=== PATIENT | female | born 1985 | race Caucasian/White ===

== ENCOUNTER 2023-07-10 01:27 | Day surgery (SDC) | payer BC, SELFPAY ==
[2023-06-28 09:22] VITALS: BMI 35.6
[2023-07-10 08:47] VITALS: BP 139/91; PULSE 76; RESP 18; TEMP 36.2; O2SAT 99
[2023-07-10] MEDS: LACTATED RINGERS 1,000 ML 150 ML IV CONT (08:56)
--- NOTE | 2023-07-10 09:15 | WPDANESEPPF ---
Anes - Initial Pre Proc Eval Procedure: Operation Date: 07/10/23 10:00 Proposed Procedures p Colonoscopy - Frank Helm MD Date/Time: 07/10/23 09:15 Surgeon: Frank Helm MD Pre Op Diagnosis: family hx colon ca Patient Data Age: 38 Gender: F Height: 1.68 m Weight: 109.5 kg Last Vital Signs Temp 97.1 F L 07/10/23 08:47 Pulse 76 07/10/23 08:47 Resp 18 07/10/23 08:47 BP 139/91 H 07/10/23 08:47 Pulse Ox 99 07/10/23 08:47 O2 Del Method Room Air 07/10/23 08:47 Allergies Allergy/AdvReac Type Severity Reaction Status Date / Time No Known Allergies Allergy Unknown Verified 07/10/23 08:44 Home Medications Medication Instructions Recorded Confirmed Type betamethasone valerate 0.1 % 1 applic topical BID PRN rash #45 10/04/21 06/28/23 Rx topical cream grams cyclobenzaprine 10 mg tablet 10 mg PO QHS PRN muscle spasm #30 01/06/22 06/28/23 Rx tabs sertraline 50 mg tablet 75 mg PO DAILY #135 tabs 03/07/23 06/28/23 Rx Patient hx anesthesia problems: none Family hx anesthesia problems: none Results Review: All pre-operative results and documents have been reviewed as part of the pre-operative evaluation. [facility] Past Medical History Medical History Abnormal Pap smear of cervix 07/26/21 lgsil +hpv colpo 08/10/2021 ok per [facility] Anxiety and depression rx meds Encounter for IUD insertion 09/20/16 Mirena insertion 08/23/21 Mirena removal/reinsertion Encounter for IUD removal 08/23/21 Mirena removal/reinsertion HPV in female Kidney stones Vaginal delivery 06/28/13 Casi no complications Surgical History Surgical History History of 07/11/16 primary c/s--elective prior trauma [place] History of colposcopy with cervical biopsy 08/10/21 benign History of lithotripsy (10/12/12) Family History Family History Mother Patient's mother is in good health Father Malignant neoplasm of prostate Colon polyp Sibling Patient's sister is in good health Patient's brother is in good health Other Breast cancer maternal aunt Social History Social History Smoking status: Never smoker Second hand tobacco smoke exposure: No Alcohol intake: never Substance use: never Substance use type: does not use Lack of Transportation: No Lack of Food: Never True Current Housing: I Have Housing Concerned About Future Housing: No Difficulty Paying Gas/Electric Bills: No Difficulty Paying for Meds: No Currently Unemployed: No Education: High School Diploma/GED Difficulty w/ Childcare or Family Care: No Living arrangements: with family Additional living arrangements comments: Occupation/Education: occupation 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 Gender identity (if verbalized by the patient): Female Sexual Orientation (if Verbalized by the Patient): Straight or Heterosexual Spiritual care concerns: No Anes - Eval Final PreProcedure Day of Procedure 07/10/23 09:15 Patient weight: morbidly obese Heart: regular rate and rhythm Lungs: clear to auscultation Airway: Mallampati scale class II Neurological: alert and oriented Last oral intake: >/= 8 hours ASA classification: III Emergent: no Anesthetic plan: proceed Anesthesia type and monitoring: general GIVS and standard monitoring Results Review: All pre-operative results and documents have been reviewed as part of the pre-operative evaluation. Informed Consent: The patient's anesthetic plan and its attendant risks and benefits were discussed with the patient/family/POA. Questions were solicited and answers provided to the satisfaction of the patient/family/POA.
--- NOTE | 2023-07-10 09:27 | PM.HPGS ---
History of Present Illness History of Present Illness Consent: Risks, benefits, and alternatives have been discussed and questions answered. Patient agrees to proceed with procedure. Chief complaint: family hx colon ca Narrative: Radha Wiley is a 38 year old female here for first colonoscopy, father had colon cancer Review of Systems Constitutional: Constitutional: Denies headache(s) and Denies weakness Eyes: Eyes: Denies blurry vision ENT: Reports Normal hearing present, Denies headache(s) and Denies neck pain Cardiovascular: Cardiovascular: Denies chest pain and Denies dyspnea Respiratory: Respiratory: Denies dyspnea Gastrointestinal: Gastrointestinal: Reports no additional gastrointestinal complaints Genitourinary: Genitourinary: Denies dysuria Musculoskeletal: Musculoskeletal: Denies neck pain Integumentary/Breasts: Skin/Breast: Denies dry skin Neurologic: Reports Normal hearing present, Denies headache(s) and Denies weakness Psychiatric: Psychiatric: Denies anxiety Endocrine: Endocrine: Denies change in body appearance Hematologic/Lymphatic: Hematologic/Lymphatic: Denies easy bleeding Allergic/Immunologic: Allergic/Immunologic: Denies urticaria PMF Past Medical History Medical History Abnormal Pap smear of cervix 07/26/21 lgsil +hpv colpo 08/10/[address] [facility] Anxiety and depression rx meds Encounter for IUD insertion 09/20/16 Mirena insertion 08/23/21 Mirena removal/reinsertion Encounter for IUD removal 08/23/21 Mirena removal/reinsertion HPV in female Kidney stones Vaginal delivery 06/28/13 Casi no complications Surgical History Surgical History History of 07/11/16 primary c/s--elective prior trauma [place] History of colposcopy with cervical biopsy 08/10/21 benign History of lithotripsy (10/12/12) Family History Family History Mother Patient's mother is in good health Father Malignant neoplasm of prostate Colon polyp Sibling Patient's sister is in good health Patient's brother is in good health Other Breast cancer maternal aunt Social History Social History Smoking status: Never smoker Second hand tobacco smoke exposure: No Alcohol intake: never Substance use: never Substance use type: does not use Lack of Transportation: No Lack of Food: Never True Current Housing: I Have Housing Concerned About Future Housing: No Difficulty Paying Gas/Electric Bills: No Difficulty Paying for Meds: No Currently Unemployed: No Education: High School Diploma/GED Difficulty w/ Childcare or Family Care: No Living arrangements: with family Additional living arrangements comments: Occupation/Education: occupation 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 Gender identity (if verbalized by the patient): Female Sexual Orientation (if Verbalized by the Patient): Straight or Heterosexual Spiritual care concerns: No Meds Home Medications and Allergies Home Medications Medication Instructions Recorded Confirmed Type betamethasone valerate 0.1 % 1 applic topical BID PRN rash #45 10/04/21 06/28/23 Rx topical cream grams cyclobenzaprine 10 mg tablet 10 mg PO QHS PRN muscle spasm #30 01/06/22 06/28/23 Rx tabs sertraline 50 mg tablet 75 mg PO DAILY #135 tabs 03/07/23 06/28/23 Rx Allergies Allergy/AdvReac Type Severity Reaction Status Date / Time No Known Allergies Allergy Unknown Verified 07/10/23 08:44 Vital Signs Vital Signs - 24 hr 07/10/23 08:47 Temperature 97.1 F L Pulse Rate 76 Respiratory Rate 18 Blood Pressure 139/91 H Pulse Oximetry 99 Oxygen Delivery Room Air Exam Const: General: comfortable and no acute distress
[2023-07-10 09:51] VITALS: BP 92/59; PULSE 74; RESP 20; O2SAT 95
[2023-07-10 10:01] VITALS: BP 105/69; PULSE 65; RESP 22; O2SAT 96
[2023-07-10 10:11] VITALS: BP 106/65; PULSE 56; RESP 16; O2SAT 99
== END 2023-07-10 10:20 | disposition home or self-care (01) ==
PROVIDERS: PCP Internal Medicine; Visit Provider Internal Medicine Gastroenterology
PROC: 0DJD8ZZ Inspection of Lower Intestinal Tract, Via Natural or Artificial Opening Endoscopic (ICD-10-PCS; CPT 45378; principal; 2023-07-10 10:00)
DX: Z12.11 Encounter for screening for malignant neoplasm of colon (principal); K64.8 Other hemorrhoids; F41.8 Other specified anxiety disorders; Z80.0 Family history of malignant neoplasm of digestive organs; E66.01 Morbid (severe) obesity due to excess calories; Z68.39 Body mass index [BMI] 39.0-39.9, adult
CPT/HCPCS: 45378; J2704; J7120

== ENCOUNTER 2023-10-31 13:27 | Emergency (ER) | payer BC, SELFPAY ==
--- NOTE | ~2023-10-31 | CT_ITS ---
EXAMINATION: CT BRAIN W/O DATE: 10/31/2023 14:10 INDICATION: Headache. TECHNIQUE: Computed tomography (CT) of the head was performed without intravenous contrast. The dose- length product was 605.33 mGy-cm. Automated exposure control and iterative reconstruction technique w ere employed. COMPARISON: No prior studies for comparison. FINDINGS: Normal brain parenchymal volume for age. Normal adler-white differentiation. No acute intrac ranial hemorrhage, infarction, mass or mass effect. No ventriculomegaly or midline shift. Midline sagittal images demonstrate a normal corpus callosum, c raniovertebral junction and sella turcica. Basilar cisterns are patent. Paranasal sinuses and mastoids are pneumatized. No depressed skull fractures. IMPRESSION: 1. No acute intracranial abnormality. Reviewed, dictated and finalized at location L. 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
[2023-10-31 13:28] VITALS: BP 137/93; PULSE 63; RESP 16; TEMP 36.4; O2SAT 99
--- NOTE | 2023-10-31 14:09 | ED.HA ---
HPI - Headache General Chief Complaint: Headache <COREEN Donovan Last Filed: 10/31/23 14:19> Stated Complaint: headache <COREEN Donovan Last Filed: 10/31/23 14:19> Time Seen by Provider: 10/31/23 15:51 <COREEN Donovan Last Filed: 10/31/23 14:19> Source: patient <COREEN Donovan Last Filed: 10/31/23 14:19> Mode of arrival: ambulatory <COREEN Donovan Last Filed: 10/31/23 14:19> Limitations: no limitations <COREEN Donovan Last Filed: 10/31/23 14:19> History of Present Illness HPI Narrative: Patient is a 38 y/o female who presents to the ED with c/o SU. Patient reports the headache first began 4 days, starts in posterior neck and radiates to frontal region. Hx of migraines, but states it has never been this severe and typically resolves with excedrin. Pain is intermittent, but became worse today after lunch. Reports photophobia/phonophobia, N/V, dizziness. She also reports recent URI sx's, including cough, congestion, rhinorrhea, sinus pressure. Family members have had similar sx's. Patient has taken Ibuprofen, sudafed, nasal spray today without relief. Denies numbness/tingling, focal weakness, vision changes, syncope, fevers. <COREEN Donovan Last Filed: 10/31/23 14:19> Related Data Allergies/Adverse Reactions: Allergies Allergy/AdvReac Type Severity Reaction Status Date / Time No Known Allergies Allergy Unknown Verified 10/31/23 15:58 <COREEN Donovan Last Filed: 10/31/23 14:19> Review of Systems Review of Systems: CONSTITUTIONAL: Denies fever, chills, or sweats. ENT: See HPI. CARDIOVASCULAR: Denies chest pain, palpitations, or edema. RESPIRATORY: Reports cough. GASTROINTESTINAL: See HPI. MUSCULOSKELETAL: See HPI. NEUROLOGIC: See HPI. <Shahida Taveras PA-C - Last Filed: 10/31/23 14:19> All systems reviewed & are unremarkable except as noted in HPI and below <Shahida Taveras PA-C - Last Filed: 10/31/23 14:19> [facility] Past Medical History Medical History: Medical History Abnormal Pap smear of cervix 07/26/21 lgsil +hpv colpo 08/10/2021 ok per [facility] Anxiety and depression rx meds Encounter for IUD insertion 09/20/16 Mirena insertion 08/23/21 Mirena removal/reinsertion Encounter for IUD removal 08/23/21 Mirena removal/reinsertion HPV in female Kidney stones Vaginal delivery 06/28/13 Casi no complications <Shahida Taveras PA-C - Last Filed: 10/31/23 14:19> Surgical History Surgical History: Surgical History H/O colonoscopy History of 07/11/16 primary c/s--elective prior trauma [place] History of colposcopy with cervical biopsy 08/10/21 benign 10/12/23 low grade lesions, KATIE 1 on cervical biopsy. History of lithotripsy (10/12/12) <Shahida Taveras PA-C - Last Filed: 10/31/23 14:19> Family History Family History: Family History Mother Patient's mother is in good health Father Malignant neoplasm of prostate Colon polyp Sibling Patient's sister is in good health Patient's brother is in good health Other Breast cancer maternal aunt <Shahida Taveras PA-C - Last Filed: 10/31/23 14:19> Social History Social History: Social History Smoking status: Never smoker Second hand tobacco smoke exposure: No Alcohol intake: never Substance use: never Substance use type: does not use Lack of Transportation: No Lack of Food: Never True Current Housing: I Have Housing Concerned About Future Housing: No Difficulty Paying Gas/Electric Bills: No Difficulty Paying for Meds: No Currently Unemployed: No Education: [employer]
[2023-10-31 14:11] VITALS: BP 147/90; PULSE 88; RESP 19; O2SAT 100
[2023-10-31] MEDS: ACETAMINOPHEN 500 MG TABLET 1000 MG PO (14:30)
[2023-10-31] MEDS: diphenhydrAMINE HCl INJ 50 MG/ML VIAL 25 MG IV PUSH (14:39)
[2023-10-31] MEDS: methylPREDNISolone SOD SUCC 125 MG VIAL IV PUSH (14:40)
[2023-10-31] MEDS: METOCLOPRAMIDE HCL INJ 10 MG/2 ML VIAL IV PUSH (14:40)
[2023-10-31 15:22] LABS: Influenza A QL RT-PCR Negative (Negative); Influenza B QL RT-PCR Negative (Negative); RSV RNA, RT-PCR Negative (Negative); SARS-CoV-2 RNA PCR Negative (Negative)
[2023-10-31] MEDS: KETOROLAC 15 MG/ML VIAL (*BKC) IV PUSH (16:28)
[2023-10-31] MEDS: SODIUM CHLORIDE 0.9% IV 1,000 ML 999 ML IV CONT (16:28)
[2023-10-31 18:03] VITALS: BP 138/72; PULSE 79; O2SAT 98
== END 2023-10-31 18:04 | disposition home or self-care (01) ==
PROVIDERS: Physician Assistant; Emergency Provider Emergency Medicine; PCP Internal Medicine
DX: B34.9 Viral infection, unspecified (principal); R51.9 Headache, unspecified; Z20.822 Contact with and (suspected) exposure to COVID-19; F41.9 Anxiety disorder, unspecified; F32.A Depression, unspecified; Z87.442 Personal history of urinary calculi
CPT/HCPCS: 70450; 87637; 96361; 96374; 96375; 99284; A9270; J1200; J1885; J2765; J2930; J7030

== ENCOUNTER 2024-05-21 09:52 | Outpatient (CLI) | payer BC, SELFPAY ==
[2024-05-21 10:16] LABS: Basophils Percent Auto 0.6 % (0.2-1.2); Eosinophils Absolute Auto 0.1 K/mm3 (0-0.3); Hematocrit 44.1 % (37.0-47.0); Hemoglobin 14.3 g/dL (12.0-15.0); Immature Granulocyte Absolute 0.03 K/mm3 (0.00-0.031); Immature Granulocyte Percent A 0.4 % (0-0.5); Lymphocytes Absolute Auto 2.18 K/mm3 (0.9-3.2); Lymphocytes Percent Auto 31.7 % (18.3-44.2); Mean Corpuscular HGB Conc 32.4 g/dl (32-36); Mean Corpuscular Hemoglobin 29.3 pg (26-34); Mean Corpuscular Volume 90.4 fl (80-100); Mean Platelet Volume 11.2 fl (7.4-10.4); Monocytes Absolute Auto 0.5 K/mm3 (0.1-0.6); Monocytes Percent Auto 7.3 % (2.6-8.5); Platelet Count Result 228 k/mm3 (150-375); Red Blood Count 4.88 M/mm3 (4.2-5.4); White Blood Count 6.9 K/mm3 (4.5-10.0)
[2024-05-21 10:31] LABS: Alanine Aminotransferase 16 U/L (6-35); Albumin Level 4.9 g/dL (3.5-5.1); Alkaline Phosphatase 64 U/L (38-126); Anion Gap 11 mmol/L (4-12); Aspartate Amino Transferase 20 U/L (14-36); Bilirubin,Total 0.5 mg/dL (0.2-1.3); Blood Urea Nitrogen 14 mg/dL (7-17); Calcium 9.3 mg/dL (8.4-10.2); Carbon Dioxide 22 mmol/L (22-30); Chloride 108 mmol/L (98-107); Cholesterol 202 mg/dL (0-200); Estimated Glomerular Filt Rate > 60; Glucose 98 mg/dL (65-110); HDL Direct 45 mg/dL; Potassium 3.9 mmol/L (3.4-5.0); Sodium 141 mmol/L (137-145); Triglycerides 176 mg/dL (<150)
[2024-05-21 10:38] LABS: Hemoglobin A1C 5.4 % (<5.7)
[2024-05-21 10:42] LABS: LDL Cholesterol Direct 118 mg/dL
== END 2024-05-21 09:53 | disposition home or self-care (01) ==
LOC: ANHLAB 09:55
PROVIDERS: PCP Nurse Practitioner; Visit Provider Nurse Practitioner
DX: Z00.00 Encounter for general adult medical examination without abnormal findings (principal); R73.9 Hyperglycemia, unspecified
CPT/HCPCS: 36415; 80053; 80061; 83036; 84443; 85025

== ENCOUNTER 2025-08-20 08:53 | Observation (INO) | payer BC, SELFPAY ==
[2025-08-20] VITALS (11 sets, daily range): BP systolic 93–162; BP diastolic 53–90; PULSE 39–62; RESP 17–19; TEMP 36.4–36.9; O2SAT 100; BMI 31.6
--- NOTE | 2025-08-20 | ECHO_ITS ---
Patient Info Name: Radha Wiley Age: 40 years : 1985 Gender: Female Ht: 66 in Wt: 190 lbs BSA: 2.03 m2 HR: 58 bpm BP: 122 / 86 mmHg Technical Quality: Good Exam Date: 08/20/2025 2:02 PM Patient Status: I Admit Date: 08/20/2025 Exam Type: CA echo doppler color flow Complete two-dimensional, color flow and Doppler transthoracic echocardiogram is performed. Staff Referring Physician: Xin Blair Pattern Storage Clerk: Joie Kahn Attending Provider: Rupert Curiel Summary 1. Complete two-dimensional, color flow and Doppler transthoracic echocardiogram is performed. 2. Left ventricular chamber dimension is normal. 3. Left ventricular systolic function is normal, estimated at 65-70. 4. The left ventricular diastolic function is normal. 5. E/e' 8 is minimally elevated. 6. Left atrial chamber dimension is mildly enlarged. 7. There is trace mitral valve regurgitation. 8. There is mild tricuspid valve regurgitation. 9. No pulmonary hypertension, estimated pulmonary arterial systolic pressure is 33 mmHg. 10. There is trace pulmonic regurgitation. Left Ventricle E/e' 8 is minimally elevated. Left ventricular chamber dimension is normal. Left ventricular systolic function is normal, estimated at 65-70. The left ventricular diastolic function is normal. Right Ventricle Right ventricular chamber dimension is normal. Right ventricular systolic function is normal and with normal TAPSE 2.4 cm. Left Atria Left atrial chamber dimension is mildly enlarged. Right Atria Right atrial chamber dimension is normal. Aortic Valve The aortic valve is trileaflet. There is no aortic valve stenosis. There is no aortic valve regurgitation. Pulmonic Valve There is trace pulmonic regurgitation. Mitral Valve There is no mitral valve stenosis. There is trace mitral valve regurgitation. Tricuspid Valve There is mild tricuspid valve regurgitation. No pulmonary hypertension, estimated pulmonary arterial systolic pressure is 33 mmHg. Pericardium/Pleural There is no pericardial effusion. Inferior Vena Cava Normal inferior vena cava with >50% collapse upon inspiration consistent with normal right atrial pressure, 5 mmHg. Aorta The aortic root size at the sinus of Valsalva is normal. Left Ventricular Outflow Tract Name Value Normal LVOT 2D LVOT Diameter 2.0 cm LVOT Doppler LVOT Peak Velocity 176 cm/s LVOT Peak Gradient 12 mmHg LVOT Mean Gradient 6 mmHg LVOT VTI 41 cm LVOT VTI/AV VTI Ratio 0.8 LVOT Stroke Volume 134 ml LVOT CO 12.2 l/min LVOT CI 6.0 l/min/m2 Pulmonic Valve Name Value Normal RVOT Doppler RVOT Peak Velocity 97 cm/s RVOT Peak Gradient 4 mmHg PV Doppler PV Peak Velocity 126 cm/s PV Peak Gradient 6 mmHg Mitral Valve Name Value Normal MV Diastolic Function MV E Peak Velocity 106 cm/s MV A Peak Velocity 87 cm/s MV E/A 1.2 MV Decel Time (PW) 211 ms MV Annular TDI MV E/e' (Septal) 12.0 MV E/e' (Lateral) 6.9 MV E/e' (Average) 9.5 Tricuspid Valve Name Value Normal TV Regurgitation Doppler TR Peak Velocity 264 cm/s TR Peak Gradient 28 mmHg Estimated PAP/RSVP RA Pressure 5 mmHg <=5 PA Systolic Pressure 33 mmHg <36 RV Systolic Pressure 33 mmHg <36 Aortic Valve Name Value Normal AV Doppler AV Peak Velocity 218 cm/s AV Peak Gradient 18 mmHg AV Mean Gradient 8 mmHg AV VTI 51 cm AV Area (Cont Eq VTI) 2.7 cm2 >=3.0 AV Area (Cont Eq Chi) 2.7 cm2 AV DI (Chi) 0.81 AV Regurgitation 2D LVOT Area 3.3 cm2 Ventricles Name Value Normal LV Dimensions 2D/MM IVS Diastolic Thickness (2D) 1.0 cm 0.6-1.0 LVID Diastole (2D) 4.6 cm 3.8-5.2 LVIW Diastolic Thickness (2D) 0.9 cm 0.6-0.9 LVID Systole (2D) 3.2 cm 2.2-3.5 LVOT Diameter 2.0 cm LV Mass (2D Cubed) 155.66 g 67.00-162.00 LV Mass Index (2D Cubed) 77 g/m2 43-95 Relative Wall Thickness (2D) 0.42 <=0.42 LV Fractional Shortening/Ejection Fraction 2D/MM LV Fractional Shortening (2D) 30 % 27-45 LV EF (2D Teichholz) 57 % LV Diastolic Volume (4C MOD) 114 ml LV EF (4C MOD) 74 % LV Diastolic Volume (2C MOD) 113 ml LV EF (2C MOD) 58 % LV Diastolic Volume (BP MOD) 118 ml 46-106 LV Diastolic Volume Index (BP MOD) 58 ml/m2 29-61 LV Systolic Volume (BP MOD) 33 ml 14-42 LV Systolic Volume Index (BP MOD) 16 ml/m2 8-24 LV EF (BP MOD) 72 % 54-74 LV Diastolic Length (4C) 8.0 cm LV Systolic Length (4C) 6.1 cm LV Stroke Volume (4C MOD) 84 ml Atria Name Value Normal LA Dimensions LA Volume (4C A-L) 66 ml LA Volume (BP A-L) 60 ml RA Dimensions RA Systolic Major Ragley Length (4C) 5.2 cm 2.2-2.8 RA Area (4C) 15.0 cm2 <=18.0 Report Signatures
--- NOTE | ~2025-08-20 | XR_ITS ---
EXAMINATION: XR chest 1V portable DATE: 08/20/2025 11:18 INDICATION: Vomiting TECHNIQUE: frontal view of the chest was obtained. COMPARISON: None FINDINGS: The lungs are clear with no focal airspace opacities, pulmonary edema, pleural effusion or pneumothorax. The cardiomediastinal silhouette is normal. Visualized bones and soft tissues are unremarkable. IMPRESSION: 1. No acute cardiopulmonary disease. Reviewed, dictated and finalized at location A.
--- NOTE | ~2025-08-20 | CT_ITS ---
EXAMINATION: CT abdomen pelvis w con DATE: 08/20/2025 10:05 INDICATION: Abdominal pain. TECHNIQUE: Computed tomography (CT) of the abdomen and pelvis was performed with 100 mL Omnipaque 350 intravenous contrast. Automated exposure control and iterative reconstruction technique were employed. The dose-length product was 553.88 mGy-cm. COMPARISON: CT abdomen and pelvis 10/12/2012 FINDINGS: The visualized portions of the lung bases are clear without pneumonia or pleural effusion. The heart size is normal. No pericardial effusion. There is a small sliding hiatal hernia. The liver, gallbladder, spleen, pancreas, adrenal glands, and left kidney are normal. There are cysts in right kidney measuring up to 2.8 cm. There are two 3 mm stones in right kidney. There is an umbilical hernia containing fat. There is an intrauterine device in expected position. There is diverticulosis of the colon without evidence of diverticulitis. There are no dilated loops of bowel. The appendix is normal. There are no pathologically enlarged lymph nodes. There is no free intraperitoneal fluid. There is mild thoracic and lumbar spondylosis. IMPRESSION: 1. Small sliding hiatal hernia. 2. Umbilical hernia containing fat. Reviewed, dictated and finalized at location E.
--- NOTE | 2025-08-20 09:07 | ECG_ITS ---
Test Date: 2025-08-20 09:12:54 Measurements Intervals [place] Rate: 42 P: 19 NH: 143 QRS: 67 QRSD: 98 T: 50 QT: 490 QTc: 413 Interpretive Statements SINUS BRADYCARDIA WITH SINUS ARRHYTHMIA ABNORMAL ECG No previous ECG available for comparison Electronically Signed On 08-21-2025 12:35:05 CDT by Vasiliy Fang M.D.
--- OUTSIDE RECORDS SUMMARY | 2025-08-20 09:24 | XMS_ITS | Clinical Summary ---
Author Organization [facility] Address [address] [place] [address] Care Team Providers Care Creative Writer Name Role Phone Unknown, Notinfile Primary Care Provider Unavail able Allergies No known active allergies Medications No known medications Medical History Medical History Date Comments Anxiety Social History Tobacco Use Types Packs/Day Years Used Date Smoking Tobacco: Never Assessed Personal Safety Answer Date Recorded Have you ever been in or are you currently in a harmful physical or emotional relationship or is someone making you feel afraid or unsafe? 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 Gender Identity Not on file Sexual Orientation Not on file Obstetrics History Last Filed Vital Signs Vital Sign Reading Time Taken Comments Blood Pressure 145/86 11/02/2023 12:00 PM NURSING PROJECT COORDINATOR Pulse 67 11/02/2023 12:00 PM NURSING PROJECT COORDINATOR Temperature 36.5 C (97.7 F) 11/02/2023 7:56 AM NURSING PROJECT COORDINATOR Respiratory Rate 18 11/02/2023 7:56 AM NURSING PROJECT COORDINATOR Oxygen Saturation 99% 11/02/2023 12:00 PM NURSING PROJECT COORDINATOR Inhaled Oxygen Concentration - - Weight 108.9 kg (240 lb) 11/02/2023 7:56 AM NURSING PROJECT COORDINATOR Height 167.6 cm (5' 6) 11/02/2023 7:56 AM NURSING PROJECT COORDINATOR Body Mass Index 38.74 11/02/2023 7:56 AM NURSING PROJECT COORDINATOR Plan of Treatment Health Maintenance Due Date Last Done Comments Breast Cancer Screening-Mammogram 1985 Cervical Cancer Screening 1985 Depression Screening 1985 Hepatitis C Screening 1985 Varicella Vaccines (1 of 2 - 13+ 2-dose series) 1998 Hepatitis B Screening 2003 Regular Well Visit/Exam 18-64 2003 HPV Vaccines (1 - 3-dose SCD M series) 2012 Influenza Vaccine (#1) 2025 DTaP/Tdap/Td Vaccine (2 - Td or Tdap) 07/12/2026 07/12/2016 Pneumococcal vaccine <65 Aged Out No longer eligible based on patient's age to complete this topic Insurance [employer] Care Teams Creative Writer Relationship Specialty Start Date End Date Unknown, Notinfile PCP - General 11/02/23
[2025-08-20 09:25] LABS: BEDSIDEPREGUCG Negative (Negative)
--- NOTE | 2025-08-20 09:26 | ED_ITS ---
HPI - General Adult General Chief complaint: Abdominal Pain Stated complaint: flu Time Seen by Provider: 08/20/25 08:57 History of Present Illness HPI narrative: Radha Westfall is a 40-year-old female with past medical history of ADHD who presents with reports having nausea vomiting this started 2 days ago. She stated that she could not keep anything down 2 days ago and was having upper abdominal pain. She states yesterday she thought she was feeling a little bit better she was able to eat some but then all the symptoms returned today with continued nausea vomiting and upper abdominal pain. She states that she also started to have diarrhea head today that was new. Related Data Allergies Allergy/AdvReac Type Severity Reaction Status Date / Time No Known Allergies Allergy Unknown Verified 08/20/25 14:54 Review of Systems 2 Review of Systems: All systems reviewed & are unremarkable except as noted in HPI and below PMFSH Past Medical History Medical History Anxiety and depression rx meds Vaginal delivery 06/28/13 Casi no complications Encounter for IUD removal 08/23/21 Mirena removal/reinsertion Encounter for IUD insertion 09/20/16 Mirena insertion 08/23/21 Mirena removal/reinsertion Kidney stones HPV in female Abnormal Pap smear of cervix 07/26/21 lgsil +hpv colpo 08/10/2021 ok per [facility] Surgical History Surgical History H/O colonoscopy History of colposcopy with cervical biopsy 08/10/21 benign 10/12/23 low grade lesions, KATIE 1 on cervical biopsy. History of 07/11/16 primary c/s--elective prior trauma [place] History of lithotripsy (10/12/12) Family History Family History Mother Patient's mother is in good health Father Malignant neoplasm of prostate Colon polyp Sibling Patient's sister is in good health Patient's brother is in good health Other Breast cancer maternal aunt Social History Social History Smoking status: Never smoker Second hand tobacco smoke exposure: No Alcohol intake: current Drinks per week: 1 Substance use: current Substance use type: marijuana Lack of Transportation: No Lack of Food: Never True Current Housing: I Have Housing Concerned About Future Housing: No Difficulty Paying Gas/Electric Bills: No Difficulty Paying for Meds: No Currently Unemployed: No Education: High School Diploma/GED Difficulty w/ Childcare or Family Care: No Living arrangements: with family Additional living arrangements comments: Occupation/Education: occupation 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 EYES: PERRLA and EOMI. ENT: Nares clear, no rhinorrhea or epistaxis. Mucous membranes moist. Oropharynx without tonsillar hypertrophy exudate or other lesions. NECK: Supple. No adenopathy or masses. No carotid bruits or JVD CHEST: Clear to auscultation. No respiratory distress. No wheezes rales or rhonchi HEART: Regular rate and rhythm. No murmur heard. Normal peripheral pulses. ABDOMEN: Soft, hypoactive BS, + pain to the upper and mid abdomen - she states it makes her feel she will vomit with palpation EXTREMITIES: Normal range of motion. No edema. SKIN: Warm, dry, no rash. NEURO: No focal deficits. Alert and oriented x3. PSYCH: Normal mood and affect. Course Vital Signs Vital signs: Vital Signs Temperature 36.4 C 08/20/25 08:57 Pulse Rate 47 L 08/20/25 08:57 Respiratory Rate 18 08/20/25 08:57 Blood Pressure 162/90 H 08/20/25 08:57 Pulse Oximetry 100 08/20/25 08:57 Oxygen Delivery Room Air 08/20/25 08:57 Temperature 36.8 C 08/20/25 14:40 Pulse Rate 62 08/20/25 16:30 Respiratory Rate 19 08/20/25 16:30 Blood Pressure 106/56 L 08/20/25 17:03 Pulse Oximetry 100 08/20/25 16:30 Oxygen Delivery Room Air 08/20/25 16:30 Medical Decision Making MDM Narrative Medical decision making narrative: 40-year-old with complaints of having upper abdominal pain nausea vomiting and diarrhea today's states 3 with symptoms. She has got maybe she had the flu and she called her doctor to let him know how she is feeling he told her that since she been dealing with this for over 48 hours that she needs to go to the emergency room. Concern for : SBO/ cholecystitis/ pancreatitis/ pyelonephritis/ Viral syndrome / dehydration Plan to check labs likely CT abd/pelv During the course of treating her nausea vomiting abdominal pain she is noted to have markedly bradycardia. She was mostly between 40 and 46 and dipping down to 39 and 38 during knee she did remain asymptomatic no shortness of breath, blood pressure remained stable, patient was maintaining well. She had continued upper abdominal pain and the nausea feeling. Her lab work showed white blood cell count at 10.1 hemodynamically stable CMP showed mild OSCAR with an elevated creatinine of 1.1 to GFR 54 her glucose was 144 potassium slightly low at 3.3. Lactate was normal 1.3 lipase 241 With her heart rate being newly is low we did EKG which showed sinus bradycardia with a troponin that was negative Her urinalysis showed urinary tract infection with cloudy positive protein 6, trace ketones, 2+ blood, positive leukocytes with white blood cells 21-[address] scan-1. Small sliding hiatal hernia. 2. Umbilical hernia containing fat. Chest XR- 1. No acute cardiopulmonary disease. With this CT scan and chest x-ray will be stable is evident that she has urinary tract infection I have treated the urinary tract infection continue to treat her nausea and her pain. She did finally get her pain under better control but still felt the nausea and continued to have bradycardia with feeling improvement. Cardiology recommended getting an echo her that other than the it is on her she is not symptomatic there is nothing else to do other end. I did reach out to the Hospitalists to admission for the echo and further treatment for her OSCAR and her urinary tract infection. Medical Records Medical records reviewed: Yes I reviewed the external patient's medical records. Vital Signs Vital Signs: Vital Signs Temperature 36.4 C 08/20/25 08:57 Pulse Rate 47 L 08/20/25 08:57 Respiratory Rate 18 08/20/25 08:57 Blood Pressure 162/90 H 08/20/25 08:57 Pulse Oximetry 100 08/20/25 08:57 Oxygen Delivery Room Air 08/20/25 08:57 Temperature 36.8 C 08/20/25 14:40 Pulse Rate 62 08/20/25 16:30 Respiratory Rate 19 08/20/25 16:30 Blood Pressure 106/56 L 08/20/25 17:03 Pulse Oximetry 100 08/20/25 16:30 Oxygen Delivery Room Air 08/20/25 16:30 Vitals reviewed by me Lab Data Lab results reviewed: Yes I reviewed the patient's lab results. 08/20/25 09:17 08/20/25 09:17 Labs: Lab Results 08/20/25 08/20/25 08/20/25 Range/Units 09:17 09:22 09:23 WBC 10.1 H (4.5-10.0) K/mm3 RBC 4.68 (4.2-5.4) M/mm3 Hgb 14.1 (12.0-15.0) g/dL Hct 43.7 (37.0-47.0) % MCV 93.4 (80-100) fl MCH 30.1 (26-34) pg MCHC 32.3 (32-36) g/dl RDW 13.2 (11.5-14.5) % Plt Count 216 (150-375) k/mm3 MPV 11.3 H (7.4-10.4) fl Immature Gran % (Auto) 0.4 (0-0.5) % Neut % (Auto) 82.5 H (45.5-73.1) % Lymph % (Auto) 10.7 L (18.3-44.2) % [place] % (Auto) 5.9 (2.6-8.5) % Eos % (Auto) 0.2 (0-4.4) % Baso % (Auto) 0.3 (0.2-1.2) % Lymph # (Auto) 1.08 (0.9-3.2) K/mm3 [place] # (Auto) 0.6 (0.1-0.6) K/mm3 Eos # (Auto) 0.0 (0-0.3) K/mm3 Baso # (Auto) 0.0 (0.0-0.1) K/mm3 Abs Immat Gran (auto) 0.04 H (0.00-0.031) K/mm3 Absolute Neuts (auto) 8.3 H (1.3-6.7) K/mm3 Absolute Nucleated RBC 0.000 (0.0-0.012) K/mm3 Nucleated RBC % 0.0 (0.0-0.2) % Sodium 138 (137-145) mmol/L Potassium 3.3 L (3.4-5.0) mmol/L Chloride 103 (98-107) mmol/L Carbon Dioxide 25 (22-30) mmol/L Anion Gap 10 (4-12) mmol/L BUN 17 (7-17) mg/dL Creatinine 1.12 H (0.7-1.0) mg/dL Estim Creat Clear Calc 66 ml/min Estimated GFR 54 L (59 - ) Glucose 144 H (65-110) mg/dL POC Capillary Glucose 143 H (65-105) mg/dl Hemoglobin A1c 5.4 (<5.7) % Lactic Acid 1.3 (0.7-2.0) mmol/L Calcium 9.0 (8.4-10.2) mg/dL Magnesium 1.9 (1.6-2.3) mg/dL Total Bilirubin 0.5 (0.2-1.3) mg/dL AST 29 (14-36) U/L ALT 20 (6-35) U/L Alkaline Phosphatase 71 (38-126) U/L Troponin I < 0.012 (0.000-0.034) ng/mL Total Protein 7.8 (6.3-8.2) g/dL Albumin 4.5 (3.5-5.1) g/dL Lipase 241 (23-300) U/L TSH 0.500 (0.465-4.680) uIU/mL Free T4 1.22 (0.78-2.19) ng/dL Free T3 pg/mL 3.47 (2.71-6.16) pg/mL Urine Color (Yellow) Urine Appearance (Clear) Urine pH (5.0-9.0) Ur Specific [place] (1.001-1.035) Urine Protein (Negative) mg/dL Urine Glucose (UA) (Negative) mg/dL Urine Ketones (Negative) mg/dL Ur Blood (Man) (Negative) Urine Nitrate (Negative) Urine Bilirubin (Negative) Urine Urobilinogen (<2.0) mg/dL Add Ur Microanalysis Leukocyte Esterase Rfl (Negative) WILLIAM/UL Urine RBC (0-2) /hpf Urine WBC (0-3) /hpf Ur Squamous Epith Cells (Few) /hpf Urine Bacteria /hpf Urine Casts Hyaline Casts (None) /lpf POC Urine HCG, Qual Negative (Negative) Influenza A (RT-PCR) (Negative) Influenza B (RT-PCR) (Negative) RSV (RT-PCR) (Negative) SARS-CoV-2 RNA (RT-PCR) (Negative) 08/20/25 08/20/25 Range/Units 09: 09:30 WBC (4.5-10.0) K/mm3 RBC (4.2-5.4) M/mm3 Hgb (12.0-15.0) g/dL Hct (37.0-47.0) % MCV (80-100) fl MCH (26-34) pg MCHC (32-36) g/dl RDW (11.5-14.5) % Plt Count (150-375) k/mm3 MPV (7.4-10.4) fl Immature Gran % (Auto) (0-0.5) % Neut % (Auto) (45.5-73.1) % Lymph % (Auto) (18.3-44.2) % [place] % (Auto) (2.6-8.5) % Eos % (Auto) (0-4.4) % Baso % (Auto) (0.2-1.2) % Lymph # (Auto) (0.9-3.2) K/mm3 [place] # (Auto) (0.1-0.6) K/mm3 Eos # (Auto) (0-0.3) K/mm3 Baso # (Auto) (0.0-0.1) K/mm3 Abs Immat Gran (auto) (0.00-0.031) K/mm3 Absolute Neuts (auto) (1.3-6.7) K/mm3 Absolute Nucleated RBC (0.0-0.012) K/mm3 Nucleated RBC % (0.0-0.2) % Sodium (137-145) mmol/L Potassium (3.4-5.0) mmol/L Chloride (98-107) mmol/L Carbon Dioxide (22-30) mmol/L Anion Gap (4-12) mmol/L BUN (7-17) mg/dL Creatinine (0.7-1.0) mg/dL Estim Creat Clear Calc ml/min Estimated GFR (59 - ) Glucose (65-110) mg/dL POC Capillary Glucose (65-105) mg/dl Hemoglobin A1c (<5.7) % Lactic Acid (0.7-2.0) mmol/L Calcium (8.4-10.2) mg/dL Magnesium (1.6-2.3) mg/dL Total Bilirubin (0.2-1.3) mg/dL AST (14-36) U/L ALT (6-35) U/L Alkaline Phosphatase (38-126) U/L Troponin I (0.000-0.034) ng/mL Total Protein (6.3-8.2) g/dL Albumin (3.5-5.1) g/dL Lipase (23-300) U/L TSH (0.465-4.680) uIU/mL Free T4 (0.78-2.19) ng/dL Free T3 pg/mL (2.71-6.16) pg/mL Urine Color Yellow (Yellow) Urine Appearance Cloudy H (Clear) Urine pH 5.5 (5.0-9.0) Ur Specific [place] 1.026 (1.001-1.035) Urine Protein 1+ H (Negative) mg/dL Urine Glucose (UA) Negative (Negative) mg/dL Urine Ketones Trace H (Negative) mg/dL Ur Blood (Man) 2+ H (Negative) Urine Nitrate Negative (Negative) Urine Bilirubin Negative (Negative) Urine Urobilinogen 0.2 (<2.0) mg/dL Add Ur Microanalysis Reviewed Leukocyte Esterase Rfl 1+ H (Negative) WILLIAM/UL Urine RBC 6-10 H (0-2) /hpf Urine WBC 21-50 H (0-3) /hpf Ur Squamous Epith Cells Many H (Few) /hpf Urine Bacteria 3+ H /hpf Urine Casts 6-10 Hyaline Casts Present (None) /lpf POC Urine HCG, Qual (Negative) Influenza A (RT-PCR) Negative (Negative) Influenza B (RT-PCR) Negative (Negative) RSV (RT-PCR) Negative (Negative) SARS-CoV-2 RNA (RT-PCR) Negative (Negative) Imaging Data My impression: Impressions Abdomen/Pelvis CT 08/20/25 10:09 IMPRESSION: 1. Small sliding hiatal hernia. 2. Umbilical hernia containing fat. Chest X-Ray 08/20/25 11:30 IMPRESSION: 1. No acute cardiopulmonary disease. ECG Data EKG #1: ECG completion date: 08/20/25 ECG completion time: 09:12 Prior ECG tracings: not available for review Interpretation: Rate 42 MI 143 QRSd 98 QT 490 QTc 413 --[place]-- P 19 QRS 67 T 50 SINUS BRADYCARDIA WITH SINUS ARRHYTHMIA Discharge Plan Discharge Clinical Impression: Bradycardia, OSCAR (acute kidney injury) UTI (urinary tract infection) Qualifiers: Urinary tract infection type: acute cystitis Hematuria presence: with hematuria Qualified Code(s): N30.01 - Acute cystitis with hematuria Nausea and vomiting Qualifiers: Vomiting type: unspecified Qualified Code(s): R11.2 - Nausea with vomiting, unspecified Abdominal pain Qualifiers: Abdominal location: upper abdomen, unspecified Qualified Code(s): R10.10 - Upper abdominal pain, unspecified Patient Disposition: Still a Patient Condition: Stable Time of Disposition: 18:45
[2025-08-20] MEDS: METOCLOPRAMIDE HCL INJ 10 MG/2 ML VIAL IV PUSH (09:27)
[2025-08-20] MEDS: KETOROLAC 30 MG/ML VIAL (*BKC) IV PUSH (09:27)
[2025-08-20] MEDS: FAMOTIDINE 20 MG/2 ML VIAL IV PUSH (09:27)
[2025-08-20] MEDS: SODIUM CHLORIDE 0.9% IV 1,000 ML 999 ML IV CONT ×2 (09:28→10:41)
[2025-08-20 09:31] LABS: Hematocrit 43.7 % (37.0-47.0); Hemoglobin 14.1 g/dL (12.0-15.0); Immature Granulocyte Percent A 0.4 % (0-0.5); Lymphocytes Absolute Auto 1.08 K/mm3 (0.9-3.2); Mean Corpuscular HGB Conc 32.3 g/dl (32-36); Mean Corpuscular Hemoglobin 30.1 pg (26-34); Mean Corpuscular Volume 93.4 fl (80-100); Nucleated Red Blood Cells Absolute Auto 0.000 K/mm3 (0.0-0.012); Nucleated Red Blood Cells Perc 0.0 % (0.0-0.2); Platelet Count Result 216 k/mm3 (150-375); Red Blood Count 4.68 M/mm3 (4.2-5.4); White Blood Count 10.1 K/mm3 (4.5-10.0)
[2025-08-20 09:45] LABS: Alanine Aminotransferase 20 U/L (6-35); Albumin Level 4.5 g/dL (3.5-5.1); Alkaline Phosphatase 71 U/L (38-126); Anion Gap 10 mmol/L (4-12); Aspartate Amino Transferase 29 U/L (14-36); Bilirubin,Total 0.5 mg/dL (0.2-1.3); Blood Urea Nitrogen 17 mg/dL (7-17); Calcium 9.0 mg/dL (8.4-10.2); Carbon Dioxide 25 mmol/L (22-30); Chloride 103 mmol/L (98-107); Estimated CRCL calculation 66 ml/min; Estimated Glomerular Filt Rate 54; Glucose 144 mg/dL (65-110); Lipase 241 U/L (23-300); Magnesium 1.9 mg/dL (1.6-2.3); Potassium 3.3 mmol/L (3.4-5.0); Sodium 138 mmol/L (137-145); Total Protein 7.8 g/dL (6.3-8.2)
[2025-08-20 09:51] LABS: Troponin I < 0.012 ng/mL (0.000-0.034)
--- OUTSIDE RECORDS SUMMARY | 2025-08-20 09:54 | XMS_ITS | Clinical Summary ---
Author Organization [facility] Address [address] [place] [address] Care Team Providers Care Credentialer Name Role Phone Unknown, Notinfile Primary Care [...] on file Legal Sex Female 7:53 AM QA SOFTWARE TESTER Gender Identity Not on file Sexual Orientation Not on file Obstetrics History Last Filed Vital Signs Vital Sign Reading Time Taken Comments Blood Pressure 145/86 11/02/2023 12:00 PM QA SOFTWARE TESTER Pulse 67 11/02/2023 12:00 PM QA SOFTWARE TESTER Temperature 36.5 C (97.7 F) 11/02/2023 7:56 AM QA SOFTWARE TESTER Respiratory Rate 18 11/02/2023 7:56 AM QA SOFTWARE TESTER Oxygen Saturation 99% 11/02/2023 12:00 PM QA SOFTWARE TESTER Inhaled Oxygen Concentration - - Weight 108.9 kg (240 lb) 11/02/2023 7:56 AM QA SOFTWARE TESTER Height 167.6 cm (5' 6) 11/02/2023 7:56 AM QA SOFTWARE TESTER Body Mass Index 38.74 11/02/2023 7:56 AM QA SOFTWARE TESTER Plan of Treatment Health Maintenance Due Date [...] patient's age to complete this topic Insurance [employer]ax [employer] Care Teams Credentialer Relationship Specialty Start Date End Date Unknown, Notinfile PCP - General 11/02/23
[2025-08-20 09:58] LABS: Add Urine Microscopic? YES; Appearance Urine Cloudy (Clear); Glucose Urine UA Negative (Negative); Leukocyte Esterase Ur 1+ LEU/UL (Negative); Need Manual Microscopic Reviewed; Nitrate Urine Negative (Negative); Specific Grav Ur 1.026 (1.001-1.035)
[2025-08-20 10:12] LABS: Influenza A QL RT-PCR Negative (Negative); Influenza B QL RT-PCR Negative (Negative); RSV RNA, RT-PCR Negative (Negative); SARS-CoV-2 RNA PCR Negative (Negative)
[2025-08-20] MEDS: cefTRIAXone 1 GM in SODIUM CHLORIDE 0.9% IV 50 ML 100 ML IVPB (10:41)
[2025-08-20] MEDS: DICYCLOMINE HCL INJ 20 MG/2 ML VIAL IM (10:42)
[2025-08-20] MEDS: HALOPERIDOL LACTATE 5 MG/ML VIAL IV PUSH (10:42)
[2025-08-20] MEDS: ONDANSETRON INJ 4 MG/2 ML VIAL IV PUSH (12:08)
--- NOTE | 2025-08-20 12:18 | PC.NURSE ---
called lab at this time and spoke to Stan, added TSH to blood previously sent down
[2025-08-20 12:59] LABS: Thyroid Stimulating Hormone 0.500 uIU/mL (0.465-4.680)
--- NOTE | 2025-08-20 13:05 | PM.IMHP ---
H&P: HPI History of Present Illness Date/Time: 08/20/25 13:05 Chief Complaint: Abdominal Pain, Nausea, Vomiting, Diarrhea Narrative: 40 y/o F with PMH of anxiety, depression, ADHD, and kidney stones presents here with nausea, vomiting, diarrhea, and abdominal pain. The patient presents here from home on on 08/20 for further evaluation of nausea, vomiting had diarrhea, and abdominal pain. She reports onset of nausea and vomiting on Monday, 08/18. Due to the N/V she has been unable to tolerate very little PO intake for the past 2 days. Has been utilizing Zofran at home, did have some improvement yesterday but symptoms returned today. She is reporting associated upper abdominal pain that she describes as achy, epigastric, and similar pain to when she previously had a viral infection/influenza. Patient then developed diarrhea today x3, described this as dark green and loose. While in the emergency department, the patient was noted to be newly bradycardic in the upper 30s to mid 40s. She has no previous history of bradycardia. She denies associated chest pain, shortness a breath, palpitations, lightheadedness, or dizziness. Initial VS at presentation: 97.6? F, HR 47, R 18, 162/90, and 100% on RA. ED workup showed: WBC 10.1, no anemia, potassium 3.3, creatinine 1.12 and GFR 54 (1.0 and normal GFR in 2023), glucose 144, lactic 1.3, initial troponin negative, TSH 0.5 and within normal limits. UA suggestive of UTI, however may be contaminated as there are many epithelial cells. Viral PCR negative. CT of the abdomen/pelvis showed a small sliding hiatal hernia, umbilical hernia containing fat. CXR showed no acute cardiopulmonary disease. Review of Systems Review of Systems: All systems reviewed & are unremarkable except as noted in HPI and below [facility] Past Medical History Medical History Anxiety and depression rx meds Vaginal delivery 06/28/13 Casi no complications Encounter for IUD removal 08/23/21 Mirena removal/reinsertion Encounter for IUD insertion 09/20/16 Mirena insertion 08/23/21 Mirena removal/reinsertion Kidney stones HPV in female Abnormal Pap smear of cervix 07/26/21 lgsil +hpv colpo 08/10/[address] [facility] Surgical History Surgical History H/O colonoscopy History of colposcopy with cervical biopsy 08/10/21 benign 10/12/23 low grade lesions, KATIE 1 on cervical biopsy. History of 07/11/16 primary c/s--elective prior trauma [place] History of lithotripsy (10/12/12) Family History Family History Mother Patient's mother is in good health Father Malignant neoplasm of prostate Colon polyp Sibling Patient's sister is in good health Patient's brother is in good health Other Breast cancer maternal aunt Social History Social History Smoking status: Never smoker Second hand tobacco smoke exposure: No Alcohol intake: current Drinks per week: 1 Substance use: current Substance use type: marijuana Lack of Transportation: No Lack of Food: Never True Current Housing: I Have Housing Concerned About Future Housing: No Difficulty Paying Gas/Electric Bills: No Difficulty Paying for Meds: No Currently Unemployed: No Education: High School Diploma/GED Difficulty w/ Childcare or Family Care: No Living arrangements: with family Additional living arrangements comments: Occupation/Education: occupation 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 Gender identity (if verbalized by the patient): Female Sexual Orientation (if Verbalized by the Patient): Straight or Heterosexual Spiritual care concerns: No Meds Home Medications and Allergies Home Medications ?Medication ?Instructions ?Recorded ?Confirmed ?Type betamethasone valerate 0.1 % 1 applic topical BID PRN rash #45 10/04/21 08/20/25 Rx topical cream grams cyclobenzaprine 10 mg tablet 10 mg PO QHS PRN muscle spasm #30 04/25/24 08/20/25 Rx tabs sertraline 50 mg tablet 75 mg (1.5 x 50 mg) PO DAILY #135 01/24/25 08/20/25 Rx tabs methylphenidate HCl 36 mg 36 mg PO QAM #30 tabs 07/04/25 08/20/25 Rx tablet,extended release 24 hr (Concerta) ondansetron 4 mg disintegrating 4 mg PO Q6H PRN nausea and 08/19/25 08/20/25 Rx tablet vomiting #30 tabs Allergies Allergy/AdvReac Type Severity Reaction Status Date / Time No Known Allergies Allergy Unknown Verified 08/20/25 14:54 Vital Signs Vital Signs - 24 hr 08/20/25 08:57 08/20/25 10:10 08/20/25 12:08 Temperature 97.6 F Pulse Rate 47 L 40 L 39 L Respiratory Rate 18 17 18 Blood Pressure 162/90 H 145/72 H 122/86 Pulse Oximetry 100 100 100 Oxygen Delivery Room Air Exam Const: General: comfortable and no acute distress Other: , female, nontoxic appearance HENMT: Face/Nose/Sinus: Normal nares present Mouth: Yes moist mucous membranes Eyes: General: appearance normal, both eyes and all related structures Sclera: sclerae normal Pupils: Equal, round and reactive pupils present EOM: EOMs intact bilaterally Resp: Effort & Inspection: normal respiratory effort Auscultation: clear to auscultation bilaterally Cardio: Rate: bradycardic Rhythm: regular rhythm Other: S1-S2 present without murmur, rub, ectopy GI: Other: Abdomen soft, nondistended, nontender. Normoactive bowel sounds in all quadrants. Skin: General skin exam: normal color and no rashes or lesions noted Wounds: no wounds Neuro: Speech: normal speech Motor exam (neuro): 5/5 motor strength present throughout Sensory Exam: normal sensation Other: A&O x4 Extrem: General: normal to inspection Psych: Mental Status: mental status grossly normal Affect: normal affect Other: Good insight and judgment, pleasant H&P: Results Labs Labs: Short CBC 08/20/25 Range/Units 09:17 WBC 10.1 H (4.5-10.0) K/mm3 Hgb 14.1 (12.0-15.0) g/dL Hct 43.7 (37.0-47.0) % Plt Count 216 (150-375) k/mm3 BMP 08/20/25 09:17 Sodium 138 Potassium 3.3 L Chloride 103 Carbon Dioxide 25 BUN 17 Creatinine 1.12 H Glucose 144 H Calcium 9.0 Cardiac Enzymes 08/20/25 Range/Units 09:17 Troponin I < 0.012 (0.000-0.034) ng/mL Liver Function 08/20/25 Range/Units 09:17 Total Bilirubin 0.5 (0.2-1.3) mg/dL AST 29 (14-36) U/L ALT 20 (6-35) U/L Alkaline Phosphatase 71 (38-126) U/L Albumin 4.5 (3.5-5.1) g/dL Urine 08/20/25 Range/Units 09:25 Urine Color Yellow (Yellow) Urine Appearance Cloudy H (Clear) Urine pH 5.5 (5.0-9.0) Ur Specific [place] 1.026 (1.001-1.035) Urine Protein 1+ H (Negative) mg/dL Urine Glucose (UA) Negative (Negative) mg/dL Assessment and Plan Assessment and plan (1) Bradycardia: Code(s): R00.1 - Bradycardia, unspecified Status: Acute Assessment and Plan: Patient here for N/V/D and abdominal pain. Very mild hypokalemia noted upon admission, repleted. No other significant electrolyte abnormalities. Reviewed home medications, patient is on sertraline which could contribute to patient's bradycardia. Admitted for observation, cardiology consult, and echo. TSH WNL. Initial EKG showed sinus bradycardia with sinus arrhythmia, rate 42. Awaiting formal read. Telemetry monitoring. Cardiology consulted >> evaluated patient ambulatory, HR increased to the 80s demonstrating an appropriate chronotropic response to activity. Echo demonstrated no significant valvular disease. Plan to monitor overnight, if patient remains asymptomatic and no significant events noted on monitor, consider outpatient telemetry monitoring at discharge. (2) UTI (urinary tract infection): Qualifiers: Hematuria presence: without hematuria Urinary tract infection type: acute cystitis Qualified Code(s): N30.00 - Acute cystitis without hematuria Code(s): N39.0 - Urinary tract infection, site not specified Status: Suspected Assessment and Plan: - UA: Cloudy, 1+ protein, trace ketones, 2+ blood, 1+ leuk esterase, 6-10 RBC, 21-50 WBC, many epithelial cells, 3+ bacteria. Infection versus contaminant. - UC pending - no previous micro available for review - started on Ceftriaxone on 08/20 (3) Nausea and vomiting: Qualifiers: Vomiting type: unspecified Qualified Code(s): R11.2 - Nausea with vomiting, unspecified Code(s): R11.2 - Nausea with vomiting, unspecified Status: Acute Assessment and Plan: - viral PCR negative on 08/20 - CT abd/pelvis: 1. Small sliding hiatal hernia. 2. Umbilical hernia containing fat. - CXR: No acute cardiopulmonary disease. - BS mildly elevated, checking A1C - started on clear liquid diet, advance to regular as tolerated - mild hypokalemia noted, given 40 KCL IV due to nausea and vomiting Likely viral in nature or gastroenteritis. Is having associated upper abdominal pain and diarrhea. No transaminitis or cholelithiasis noted on CT. No right upper quadrant pain on exam. Now feeling improved. (4) Abdominal pain: Qualifiers: Abdominal location: upper abdomen, unspecified Qualified Code(s): R10.10 - Upper abdominal pain, unspecified Code(s): R10.9 - Unspecified abdominal pain Status: Acute Assessment and Plan: - see above - resolved (5) Hyperglycemia: Code(s): R73.9 - Hyperglycemia, unspecified Status: Acute Assessment and Plan: Initial glucose 144, check A1C. Previously 5.4% in 2023. (6) Anxiety: Code(s): F41.9 - Anxiety disorder, unspecified Status: Acute Assessment and Plan: - stable - continue home medication: Sertraline Plan Diet: clear liquid, advance as tolerated GI Prophylaxis: n/a DVT Prophylaxis: SCDs IV fluids: 2L bolus Lines/Tubes: peripheral IV Code Status: full code Quality VTE Prophylaxis VTE prophylaxis: mechanical ordered Hospitalist [facility] Advance Care Plan I have confirmed that the patient's Advanced Care Plan is present, code status is documented, or surrogate decision maker is listed in patient medical record.: Yes Medication Reconciliation I have utilized all available resources to obtain, update and review the patients current medications (includes all prescriptions, OTC, herbals, cannabis, and nutritional supplements).: Yes
[2025-08-20 13:43] LABS: Hemoglobin A1C 5.4 % (<5.7)
--- NOTE | 2025-08-20 14:39 | ADMGEN ---
This patient, Radha Wiley, was admitted to 2 Medical Room 242-01. Patient/family oriented to hospital policies and general routines including ID bracelet, bed and alarms, visiting hours, pain management, procedures, bathroom and other care routines, personal items, smoking policy, room service/diet, and visiting hours. Information on how to activate the Rapid Response Team has been discussed. Patient/Family are encouraged to report perceived risks to care and to ask questions if they do not understand what they are told or what they should do.
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
[2025-08-20 15:48] LABS: Free T3 3.47 pg/mL (2.71-6.16); Free T4 Free Thyroxine 1.22 ng/dL (0.78-2.19)
[2025-08-20] MEDS: POTASSIUM CHLORIDE INJ 40 MEQ in SODIUM CHLORIDE 0.9% IV 500 ML 130 MEQ IVPB (16:03)
[2025-08-21] VITALS: PULSE 56
[2025-08-21 04:00] VITALS: PULSE 56
[2025-08-21 05:33] LABS: Hematocrit 37.0 % (37.0-47.0); Hemoglobin 12.4 g/dL (12.0-15.0); Immature Granulocyte Percent A 0.6 % (0-0.5); Lymphocytes Absolute Auto 1.99 K/mm3 (0.9-3.2); Mean Corpuscular HGB Conc 33.5 g/dl (32-36); Mean Corpuscular Hemoglobin 30.6 pg (26-34); Mean Corpuscular Volume 91.4 fl (80-100); Nucleated Red Blood Cells Absolute Auto 0.000 K/mm3 (0.0-0.012); Nucleated Red Blood Cells Perc 0.0 % (0.0-0.2); Platelet Count Result 183 k/mm3 (150-375); Red Blood Count 4.05 M/mm3 (4.2-5.4); White Blood Count 8.8 K/mm3 (4.5-10.0)
[2025-08-21 06:00] VITALS: BP 100/65; PULSE 60; RESP 18; TEMP 36.7; O2SAT 99
[2025-08-21 06:01] LABS: Alanine Aminotransferase 18 U/L (6-35); Albumin Level 3.7 g/dL (3.5-5.1); Alkaline Phosphatase 50 U/L (38-126); Anion Gap 7 mmol/L (4-12); Aspartate Amino Transferase 21 U/L (14-36); Bilirubin,Total 0.5 mg/dL (0.2-1.3); Blood Urea Nitrogen 9 mg/dL (7-17); Calcium 8.2 mg/dL (8.4-10.2); Carbon Dioxide 22 mmol/L (22-30); Chloride 108 mmol/L (98-107); Estimated CRCL calculation 84 ml/min; Estimated Glomerular Filt Rate > 60; Glucose 84 mg/dL (65-110); Magnesium 1.9 mg/dL (1.6-2.3); Potassium 3.4 mmol/L (3.4-5.0); Sodium 137 mmol/L (137-145); Total Protein 6.4 g/dL (6.3-8.2)
--- NOTE | 2025-08-21 07:20 | PM.PNCARD ---
Progress Note: A&P Assessment and Plan (1) Bradycardia: Code(s): R00.1 - Bradycardia, unspecified Status: Acute Plan Diagnosis: -Bradycardia- asymptomatic; normal TSH, free T3, free T4; TTE showed normal LVEF with no significant valvular pathology; she had appropriate chronotropic response with activity increase in heart rate to the 80s -Nausea and vomiting- improving -Hypokalemia secondary to GI losses-potassium 3.4 today -Possible ROSA -Obesity Plan: Recommend event monitor at discharge and cardiology follow-up in 1 month Check and replace electrolytes to keep potassium greater than 4 and greater than 2 Possible ROSA-may contribute to bradycardia. Recommend OP sleep study as snoring and daytime sleepiness Obesity-weight loss encouraged Management of other medical problems per primary team Thank you for allowing us to participate in the care of this patient. Cardiology will sign off. Please call us with any questions. Subjective Date/time seen: 08/21/25 07:20 Interval history: Reason of the encounter: Bradycardia Relevant history: 40 year old female was admitted with chief complaints of nausea, vomiting. She was noted to have bradycardia to the 40s on telemetry. Cardiology was consulted for further recommendations. Interval history no chest pain, shortness of breath, dizziness lightheadedness palpitations. Telemetry shows sinus rhythm with rates now in the 40s to 60s. Heart rates increased to the 80s with walking. Review of Systems Cardiovascular: Comments: As per HPI Respiratory: Comments: As per HPI Exam Narrative: General: Alert oriented x3, no acute distress Neck: Supple, no JVD Chest: Bilaterally clear to auscultation, no rales or rhonchi Cardiac: S1, S2 +, regular rate, regular rhythm, no murmurs or rubs Extremities: No pedal edema, no skin rash Neurologic: Alert and oriented x3, no focal neurological deficits Objective Data Vital Signs Vital Signs: Vital Signs - 24 hr 08/20/25 08:57 08/20/25 10:10 08/20/25 12:08 Temperature 36.4 C Pulse Rate 47 L 40 L 39 L Respiratory Rate 18 17 18 Blood Pressure 162/90 H 145/72 H 122/86 Pulse Oximetry 100 100 100 Oxygen Delivery Room Air 08/20/25 13:44 08/20/25 14:40 08/20/25 16:00 Temperature 36.8 C Pulse Rate 47 L 51 L 62 Respiratory Rate 19 18 Blood Pressure 129/71 93/53 L Pulse Oximetry 100 100 Oxygen Delivery 08/20/25 16:30 08/20/25 17:03 08/20/25 19:52 Temperature Pulse Rate 62 62 Respiratory Rate 19 19 Blood Pressure 106/56 L Pulse Oximetry 100 100 Oxygen Delivery Room Air Room Air 08/20/25 20:00 08/20/25 22:00 08/21/25 00:00 Temperature 36.9 C Pulse Rate 56 L 60 56 L Respiratory Rate 18 Blood Pressure 101/67 Pulse Oximetry 100 Oxygen Delivery 08/21/25 04:00 08/21/25 06:00 Temperature 36.7 C Pulse Rate 56 L 60 Respiratory Rate 18 Blood Pressure 100/65 Pulse Oximetry 99 Oxygen Delivery Intake/Output Intake/Output: Intake & Output 08/18/25 08/19/25 08/20/25 08/21/25 23:59 23:59 23:59 23:59 Intake Total 2450 Balance 2450 Meds/Results Medications: Active Medications Generic Name Dose Route Start Last Admin Trade Name Freq PRN Reason Stop Dose Admin Acetaminophen 650 mg 08/20/25 13:26 Acetaminophen 325 Mg Tablet PO Q6H PRN Pain Rated 1-3 or Fever Calcium Carbonate 200 mg 08/20/25 17:02 Calcium Carbonate (Tums) 500 Mg (200 Mg Elemental) PO Q6H PRN Indigestion Cyclobenzaprine HCl 10 mg 08/20/25 17:01 Cyclobenzaprine Hcl 10 Mg Tablet PO QHS PRN Muscle Spasm Dicyclomine HCl 20 mg 08/20/25 17:02 Dicyclomine Hcl 10 Mg Capsule PO QID PRN Abdominal Cramping Diphenhydramine HCl 25 mg 08/20/25 13:26 Diphenhydramine Hcl Inj 50 Mg/Ml Vial IV PUSH Q12H PRN Nausea And Vomiting Ceftriaxone Sodium 1 gm/ 50 mls @ 100 mls/hr 08/21/25 09:00 Sodium Chloride IVPB Q24H POLLY Metoclopramide HCl 10 mg 08/20/25 13:26 Metoclopramide Hcl 10 Mg Tablet PO Q6H PRN Nausea And Vomiting Ondansetron HCl 4 mg 08/20/25 13:26 Ondansetron Inj 4 Mg/2 Ml Vial IV PUSH Q6H PRN Nausea And Vomiting Perflutren Lipid Microsphere 0 ml 08/20/25 13:19 Perflutren Lipid Microspheres 1.5 Ml Vial Diluted To 10 Ml Total Volume IV PUSH 08/23/25 13:22 ONCE PRN adequate visualization Protocol Sertraline HCl 75 mg 08/21/25 09:00 Sertraline Hcl 25 Mg Tablet PO DAILY [facility] Radiology Results: ITS Impressions Abdomen/Pelvis CT 08/20/25 10:09 IMPRESSION: 1. Small sliding hiatal hernia. 2. Umbilical hernia containing fat. Chest X-Ray 08/20/25 11:30 IMPRESSION: 1. No acute cardiopulmonary disease. Labs Labs: Laboratory Results - last 24 hr 08/20/25 08/20/25 08/20/25 09:17 09:22 09:23 WBC 10.1 H RBC 4.68 Hgb 14.1 Hct 43.7 MCV 93.4 MCH 30.1 MCHC 32.3 RDW 13.2 Plt Count 216 MPV 11.3 H Immature Gran % (Auto) 0.4 Neut % (Auto) 82.5 H Lymph % (Auto) 10.7 L [place] % (Auto) 5.9 Eos % (Auto) 0.2 Baso % (Auto) 0.3 Lymph # (Auto) 1.08 [place] # (Auto) 0.6 Eos # (Auto) 0.0 Baso # (Auto) 0.0 Abs Immat Gran (auto) 0.04 H Absolute Neuts (auto) 8.3 H Absolute Nucleated RBC 0.000 Nucleated RBC % 0.0 Sodium 138 Potassium 3.3 L Chloride 103 Carbon Dioxide 25 Anion Gap 10 BUN 17 Creatinine 1.12 H Estim Creat Clear Calc 66 Estimated GFR 54 L Glucose 144 H POC Capillary Glucose 143 H Hemoglobin A1c 5.4 Lactic Acid 1.3 Calcium 9.0 Magnesium 1.9 Total Bilirubin 0.5 AST 29 ALT 20 Alkaline Phosphatase 71 Troponin I < 0.012 Total Protein 7.8 Albumin 4.5 Lipase 241 TSH 0.500 Free T4 1.22 Free T3 pg/mL 3.47 Urine Color Urine Appearance Urine pH Ur Specific [place] Urine Protein Urine Glucose (UA) Urine Ketones Ur Blood (Man) Urine Nitrate Urine Bilirubin Urine Urobilinogen Add Ur Microanalysis Leukocyte Esterase Rfl Urine RBC Urine WBC Ur Squamous Epith Cells Urine Bacteria Urine Casts Hyaline Casts POC Urine HCG, Qual Negative Influenza A (RT-PCR) Influenza B (RT-PCR) RSV (RT-PCR) SARS-CoV-2 RNA (RT-PCR) 08/20/25 08/20/25 08/21/25 09:25 09:30 04:28 WBC 8.8 RBC 4.05 L Hgb 12.4 Hct 37.0 MCV 91.4 MCH 30.6 MCHC 33.5 RDW 13.2 Plt Count 183 MPV 11.5 H Immature Gran % (Auto) 0.6 H Neut % (Auto) 68.4 Lymph % (Auto) 22.6 [place] % (Auto) 7.3 Eos % (Auto) 0.6 Baso % (Auto) 0.5 Lymph # (Auto) 1.99 [place] # (Auto) 0.6 Eos # (Auto) 0.1 Baso # (Auto) 0.0 Abs Immat Gran (auto) 0.05 H Absolute Neuts (auto) 6.0 Absolute Nucleated RBC 0.000 Nucleated RBC % 0.0 Sodium 137 Potassium 3.4 Chloride 108 H Carbon Dioxide 22 Anion Gap 7 BUN 9 D Creatinine 0.88 Estim Creat Clear Calc 84 Estimated GFR > 60 Glucose 84 POC Capillary Glucose Hemoglobin A1c Lactic Acid Calcium 8.2 L Magnesium 1.9 Total Bilirubin 0.5 AST 21 ALT 18 Alkaline Phosphatase 50 Troponin I Total Protein 6.4 Albumin 3.7 Lipase TSH Free T4 Free T3 pg/mL Urine Color Yellow Urine Appearance Cloudy H Urine pH 5.5 Ur Specific [place] 1.026 Urine Protein 1+ H Urine Glucose (UA) Negative Urine Ketones Trace H Ur Blood (Man) 2+ H Urine Nitrate Negative Urine Bilirubin Negative Urine Urobilinogen 0.2 Add Ur Microanalysis Reviewed Leukocyte Esterase Rfl 1+ H Urine RBC 6-10 H Urine WBC 21-50 H Ur Squamous Epith Cells Many H Urine Bacteria 3+ H Urine Casts 6-10 Hyaline Casts Present POC Urine HCG, Qual Influenza A (RT-PCR) Negative Influenza B (RT-PCR) Negative RSV (RT-PCR) Negative SARS-CoV-2 RNA (RT-PCR) Negative
[2025-08-21 08:00] VITALS: PULSE 52
[2025-08-21] MEDS: SERTRALINE HCL 25 MG TABLET 75 MG PO (08:31)
[2025-08-21] MEDS: cefTRIAXone 1 GM in SODIUM CHLORIDE 0.9% IV 50 ML 100 ML IVPB (08:31)
--- NOTE | 2025-08-21 09:45 | PM.IMPN ---
Progress Note: A&P Assessment and Plan (1) Bradycardia: Code(s): R00.1 - Bradycardia, unspecified Status: Acute Assessment and Plan: Patient here for N/V/D and abdominal pain. Very mild hypokalemia noted upon admission, repleted. No other significant electrolyte abnormalities. Reviewed home medications, patient is on sertraline which could contribute to patient's bradycardia. Admitted for observation, cardiology consult, and echo. TSH WNL. Initial EKG showed sinus bradycardia with sinus arrhythmia, rate 42. Awaiting formal read. Telemetry monitoring. Cardiology consulted >> evaluated patient ambulatory, HR increased to the 80s demonstrating an appropriate chronotropic response to activity. Echo demonstrated no significant valvular disease. Plan to monitor overnight, if patient remains asymptomatic and no significant events noted on monitor, consider outpatient telemetry monitoring at discharge. card consulted notes reviewed: ''Plan: Recommend event monitor at discharge and cardiology follow-up in 1 month Check and replace electrolytes to keep potassium greater than 4 and greater than 2 Possible ROSA-may contribute to bradycardia. Recommend OP sleep study as snoring and daytime sleepiness Obesity-weight loss encouraged (2) UTI (urinary tract infection): Qualifiers: Hematuria presence: without hematuria Urinary tract infection type: acute cystitis Qualified Code(s): N30.00 - Acute cystitis without hematuria Code(s): N39.0 - Urinary tract infection, site not specified Status: Suspected Assessment and Plan: - UA: Cloudy, 1+ protein, trace ketones, 2+ blood, 1+ leuk esterase, 6-10 RBC, 21-50 WBC, many epithelial cells, 3+ bacteria. Infection versus contaminant. - UC pending - no previous micro available for review - started on Ceftriaxone on 08/20 (3) Nausea and vomiting: Qualifiers: Vomiting type: unspecified Qualified Code(s): R11.2 - Nausea with vomiting, unspecified Code(s): R11.2 - Nausea with vomiting, unspecified Status: Acute Assessment and Plan: - viral PCR negative on 08/20 - CT abd/pelvis: 1. Small sliding hiatal hernia. 2. Umbilical hernia containing fat. - CXR: No acute cardiopulmonary disease. - BS mildly elevated, checking A1C - started on clear liquid diet, advance to regular as tolerated - mild hypokalemia noted, given 40 KCL IV due to nausea and vomiting Likely viral in nature or gastroenteritis. Is having associated upper abdominal pain and diarrhea. No transaminitis or cholelithiasis noted on CT. No right upper quadrant pain on exam. Now feeling improved. improving (4) Abdominal pain: Qualifiers: Abdominal location: upper abdomen, unspecified Qualified Code(s): R10.10 - Upper abdominal pain, unspecified Code(s): R10.9 - Unspecified abdominal pain Status: Acute Assessment and Plan: - see above - resolved (5) Hyperglycemia: Code(s): R73.9 - Hyperglycemia, unspecified Status: Acute Assessment and Plan: Initial glucose 144, check A1C. Previously 5.4% in 2023. (6) Anxiety: Code(s): F41.9 - Anxiety disorder, unspecified Status: Acute Assessment and Plan: - stable - continue home medication: Sertraline Plan Diet: clear liquid, advance as tolerated GI Prophylaxis: n/a DVT Prophylaxis: SCDs IV fluids: 2L bolus Lines/Tubes: peripheral IV Code Status: full code Time Spent With Patient Time with patient: 25 - 35 minutes Subjective Date/time seen: 08/21/25 09:45 Interval history: 40 y/o F with PMH of anxiety, depression, ADHD, and kidney stones presents here with nausea, vomiting, diarrhea, and abdominal pain. The patient presents here from home on on 08/20 for further evaluation of nausea, vomiting had diarrhea, and abdominal pain. She reports onset of nausea and vomiting on Monday, 08/18. Due to the N/V she has been unable to tolerate very little PO intake for the past 2 days. Has been utilizing Zofran at home, did have some improvement yesterday but symptoms returned today. She is reporting associated upper abdominal pain that she describes as achy, epigastric, and similar pain to when she previously had a viral infection/influenza. Patient then developed diarrhea today x3, described this as dark green and loose. While in the emergency department, the patient was noted to be newly bradycardic in the upper 30s to mid 40s. She has no previous history of bradycardia. She denies associated chest pain, shortness a breath, palpitations, lightheadedness, or dizziness. Initial VS at presentation: 97.6? F, HR 47, R 18, 162/90, and 100% on RA. ED workup showed: WBC 10.1, no anemia, potassium 3.3, creatinine 1.12 and GFR 54 (1.0 and normal GFR in 2023), glucose 144, lactic 1.3, initial troponin negative, TSH 0.5 and within normal limits. UA suggestive of UTI, however may be contaminated as there are many epithelial cells. Viral PCR negative. CT of the abdomen/pelvis showed a small sliding hiatal hernia, umbilical hernia containing fat. CXR showed no acute cardiopulmonary disease assuming care. Pt is seen and examined. Cardiology consulted for bradycardia eval and following. Review of Systems Review of Systems: All systems reviewed & are unremarkable except as noted in HPI and below Exam Const: General: comfortable and no acute distress Other: , female, nontoxic appearance HENMT: Face/Nose/Sinus: Normal nares present Mouth: Yes moist mucous membranes Eyes: General: appearance normal, both eyes and all related structures Sclera: sclerae normal Pupils: Equal, round and reactive pupils present EOM: EOMs intact bilaterally Resp: Effort & Inspection: normal respiratory effort Auscultation: clear to auscultation bilaterally Cardio: Rate: bradycardic Rhythm: regular rhythm Other: S1-S2 present without murmur, rub, ectopy GI: Other: Abdomen soft, nondistended, nontender. Normoactive bowel sounds in all quadrants. Skin: General skin exam: normal color and no rashes or lesions noted Wounds: no wounds Neuro: Cranial nerves: Yes Equal, round and reactive pupils present Speech: normal speech Motor exam (neuro): 5/5 motor strength present throughout Sensory Exam: normal sensation Other: A&O x4 Extrem: General: normal to inspection Psych: Mental Status: mental status grossly normal Affect: normal affect Other: Good insight and judgment, pleasant Objective Data Vital Signs Vital Signs: Vital Signs - 24 hr 08/20/25 10:10 08/20/25 12:08 08/20/25 13:44 Temperature Pulse Rate 40 L 39 L 47 L Respiratory Rate 17 18 19 Blood Pressure 145/72 H 122/86 129/71 Pulse Oximetry 100 100 100 Oxygen Delivery 08/20/25 14:40 08/20/25 16:00 08/20/25 16:30 Temperature 98.3 F Pulse Rate 51 L 62 62 Respiratory Rate 18 19 Blood Pressure 93/53 L Pulse Oximetry 100 100 Oxygen Delivery Room Air 08/20/25 17:03 08/20/25 19:52 08/20/25 20:00 Temperature Pulse Rate 62 56 L Respiratory Rate 19 Blood Pressure 106/56 L Pulse Oximetry 100 Oxygen Delivery Room Air 08/20/25 22:00 08/21/25 00:00 08/21/25 04:00 Temperature 98.4 F Pulse Rate 60 56 L 56 L Respiratory Rate 18 Blood Pressure 101/67 Pulse Oximetry 100 Oxygen Delivery 08/21/25 06:00 Temperature 98.1 F Pulse Rate 60 Respiratory Rate 18 Blood Pressure 100/65 Pulse Oximetry 99 Oxygen Delivery Intake/Output Intake/Output: Intake & Output 08/18/25 08/19/25 08/20/25 08/21/25 23:59 23:59 23:59 23:59 Intake Total 2450 Balance 2450 Meds/Results Medications: Active Medications Generic Name Dose Route Start Last Admin Trade Name Freq PRN Reason Stop Dose Admin Acetaminophen 650 mg 08/20/25 13:26 Acetaminophen 325 Mg Tablet PO Q6H PRN Pain Rated 1-3 or Fever Calcium Carbonate 200 mg 08/20/25 17:02 Calcium Carbonate (Tums) 500 Mg (200 Mg Elemental) PO Q6H PRN Indigestion Cyclobenzaprine HCl 10 mg 08/20/25 17:01 Cyclobenzaprine Hcl 10 Mg Tablet PO QHS PRN Muscle Spasm Dicyclomine HCl 20 mg 08/20/25 17:02 Dicyclomine Hcl 10 Mg Capsule PO QID PRN Abdominal Cramping Diphenhydramine HCl 25 mg 08/20/25 13:26 Diphenhydramine Hcl Inj 50 Mg/Ml Vial IV PUSH Q12H PRN Nausea And Vomiting Ceftriaxone Sodium 1 gm/ 50 mls @ 100 mls/hr 08/21/25 09:00 08/21/25 08:31 Sodium Chloride IVPB 100 mls/hr Q24H POLLY Administration Metoclopramide HCl 10 mg 08/20/25 13:26 Metoclopramide Hcl 10 Mg Tablet PO Q6H PRN Nausea And Vomiting Ondansetron HCl 4 mg 08/20/25 13:26 Ondansetron Inj 4 Mg/2 Ml Vial IV PUSH Q6H PRN Nausea And Vomiting Perflutren Lipid Microsphere 0 ml 08/20/25 13:19 Perflutren Lipid Microspheres 1.5 Ml Vial Diluted To 10 Ml Total Volume IV PUSH 08/23/25 13:22 ONCE PRN adequate visualization Protocol Sertraline HCl 75 mg 08/21/25 09:00 08/21/25 08:31 Sertraline Hcl 25 Mg Tablet PO 75 mg DAILY POLLY Administration Radiology Results: ITS Impressions Abdomen/Pelvis CT 08/20/25 10:09 IMPRESSION: 1. Small sliding hiatal hernia. 2. Umbilical hernia containing fat. Chest X-Ray 08/20/25 11:30 IMPRESSION: 1. No acute cardiopulmonary disease. Labs Labs: Laboratory Results - last 24 hr 08/20/25 08/20/25 08/20/25 09:17 09:25 09:30 WBC RBC Hgb Hct MCV MCH MCHC RDW Plt Count MPV Immature Gran % (Auto) Neut % (Auto) Lymph % (Auto) [place] % (Auto) Eos % (Auto) Baso % (Auto) Lymph # (Auto) [place] # (Auto) Eos # (Auto) Baso # (Auto) Abs Immat Gran (auto) Absolute Neuts (auto) Absolute Nucleated RBC Nucleated RBC % Sodium 138 Potassium 3.3 L Chloride 103 Carbon Dioxide 25 Anion Gap 10 BUN 17 Creatinine 1.12 H Estim Creat Clear Calc 66 Estimated GFR 54 L Glucose 144 H Hemoglobin A1c 5.4 Calcium 9.0 Magnesium 1.9 Total Bilirubin 0.5 AST 29 ALT 20 Alkaline Phosphatase 71 Troponin I < 0.012 Total Protein 7.8 Albumin 4.5 Lipase 241 TSH 0.500 Free T4 1.22 Free T3 pg/mL 3.47 Urine Color Yellow Urine Appearance Cloudy H Urine pH 5.5 Ur Specific [place] 1.026 Urine Protein 1+ H Urine Glucose (UA) Negative Urine Ketones Trace H Ur Blood (Man) 2+ H Urine Nitrate Negative Urine Bilirubin Negative Urine Urobilinogen 0.2 Add Ur Microanalysis Reviewed Leukocyte Esterase Rfl 1+ H Urine RBC 6-10 H Urine WBC 21-50 H Ur Squamous Epith Cells Many H Urine Bacteria 3+ H Urine Casts 6-10 Hyaline Casts Present Influenza A (RT-PCR) Negative Influenza B (RT-PCR) Negative RSV (RT-PCR) Negative SARS-CoV-2 RNA (RT-PCR) Negative 08/21/25 04:28 WBC 8.8 RBC 4.05 L Hgb 12.4 Hct 37.0 MCV 91.4 MCH 30.6 MCHC 33.5 RDW 13.2 Plt Count 183 MPV 11.5 H Immature Gran % (Auto) 0.6 H Neut % (Auto) 68.4 Lymph % (Auto) 22.6 [place] % (Auto) 7.3 Eos % (Auto) 0.6 Baso % (Auto) 0.5 Lymph # (Auto) 1.99 [place] # (Auto) 0.6 Eos # (Auto) 0.1 Baso # (Auto) 0.0 Abs Immat Gran (auto) 0.05 H Absolute Neuts (auto) 6.0 Absolute Nucleated RBC 0.000 Nucleated RBC % 0.0 Sodium 137 Potassium 3.4 Chloride 108 H Carbon Dioxide 22 Anion Gap 7 BUN 9 D Creatinine 0.88 Estim Creat Clear Calc 84 Estimated GFR > 60 Glucose 84 Hemoglobin A1c Calcium 8.2 L Magnesium 1.9 Total Bilirubin 0.5 AST 21 ALT 18 Alkaline Phosphatase 50 Troponin I Total Protein 6.4 Albumin 3.7 Lipase TSH Free T4 Free T3 pg/mL Urine Color Urine Appearance Urine pH Ur Specific [place] Urine Protein Urine Glucose (UA) Urine Ketones Ur Blood (Man) Urine Nitrate Urine Bilirubin Urine Urobilinogen Add Ur Microanalysis Leukocyte Esterase Rfl Urine RBC Urine WBC Ur Squamous Epith Cells Urine Bacteria Urine Casts Hyaline Casts Influenza A (RT-PCR) Influenza B (RT-PCR) RSV (RT-PCR) SARS-CoV-2 RNA (RT-PCR) Quality VTE Prophylaxis VTE prophylaxis: mechanical ordered
[2025-08-21 12:19] VITALS: PULSE 46
[2025-08-21 14:00] VITALS: BP 113/68; PULSE 58; RESP 16; TEMP 36.6; O2SAT 100
--- NOTE | 2025-08-21 15:11 | P.DS_ITS ---
DS: Admitting Diagnosis Discharge Date 08/21/25 Admitting Diagnosis n/v DS: Discharge Diagnosis Discharge Diagnosis (1) Bradycardia: Code(s): R00.1 - Bradycardia, unspecified Status: Acute (2) UTI (urinary tract infection): Qualifiers: Hematuria presence: without hematuria Urinary tract infection type: acute cystitis Qualified Code(s): N30.00 - Acute cystitis without hematuria Code(s): N39.0 - Urinary tract infection, site not specified Status: Suspected (3) Nausea and vomiting: Qualifiers: Vomiting type: unspecified Qualified Code(s): R11.2 - Nausea with vomiting, unspecified Code(s): R11.2 - Nausea with vomiting, unspecified Status: Acute (4) Abdominal pain: Qualifiers: Abdominal location: upper abdomen, unspecified Qualified Code(s): R10.10 - Upper abdominal pain, unspecified Code(s): R10.9 - Unspecified abdominal pain Status: Acute (5) Hyperglycemia: Code(s): R73.9 - Hyperglycemia, unspecified Status: Acute (6) Anxiety: Code(s): F41.9 - Anxiety disorder, unspecified Status: Acute DS: Summary Hospital Course Hospital Course: 40 y/o F with PMH of anxiety, depression, ADHD, and kidney stones presents here with nausea, vomiting, diarrhea, and abdominal pain. The patient presents here from home on on 08/20 for further evaluation of nausea, vomiting had diarrhea, and abdominal pain. She reports onset of nausea and vomiting on Monday, 08/18. Due to the N/V she has been unable to tolerate very little PO intake for the past 2 days. Has been utilizing Zofran at home, did have some improvement yesterday but symptoms returned today. She is reporting associated upper abdominal pain that she describes as achy, epigastric, and similar pain to when she previously had a viral infection/influenza. Patient then developed diarrhea today x3, described this as dark green and loose. While in the emergency department, the patient was noted to be newly bradycardic in the upper 30s to mid 40s. She has no previous history of bradycardia. She denies associated chest pain, shortness a breath, palpitations, lightheadedness, or dizziness. Initial VS at presentation: 97.6? F, HR 47, R 18, 162/90, and 100% on RA. ED workup showed: WBC 10.1, no anemia, potassium 3.3, creatinine 1.12 and GFR 54 (1.0 and normal GFR in 2023), glucose 144, lactic 1.3, initial troponin negative, TSH 0.5 and within normal limits. UA suggestive of UTI, however may be contaminated as there are many epithelial cells. Viral PCR negative. CT of the abdomen/pelvis showed a small sliding hiatal hernia, umbilical hernia containing fat. CXR showed no acute cardiopulmonary disease. Cardiology consulted: Plan: Recommend event monitor at discharge and cardiology follow-up in 1 month Check and replace electrolytes to keep potassium greater than 4 and greater than 2 Possible ROSA-may contribute to bradycardia. Recommend OP sleep study as snoring and daytime sleepiness Obesity-weight loss encouraged Pt will be discharged with Holter monitor and close f/u with cardiology. IV antibitoics will be switched to PO - sent to pt's pharmacy to compelte the tx. Status at Discharge Functional status at discharge: independent ambulation Overall status at discharge: patient is progressing back to baseline Time Spent with Patient Time attestation: Total time spent providing and/or coordinating discharge services: Time spent: Greater than 30 minutes Exam Const: General: comfortable and no acute distress Other: , female, nontoxic appearance HENMT: Face/Nose/Sinus: Normal nares present Mouth: Yes moist mucous membranes Eyes: General: appearance normal, both eyes and all related structures Sclera: sclerae normal Pupils: Equal, round and reactive pupils present EOM: EOMs intact bilaterally Resp: Effort & Inspection: normal respiratory effort Auscultation: clear to auscultation bilaterally Cardio: Rate: bradycardic Rhythm: regular rhythm Other: S1-S2 present without murmur, rub, ectopy GI: Other: Abdomen soft, nondistended, nontender. Normoactive bowel sounds in all quadrants. Skin: General skin exam: normal color and no rashes or lesions noted Wounds: no wounds Neuro: Cranial nerves: Yes Equal, round and reactive pupils present Speech: normal speech Motor exam (neuro): 5/5 motor strength present throughout Sensory Exam: normal sensation Other: A&O x4 Extrem: General: normal to inspection Psych: Mental Status: mental status grossly normal Affect: normal affect Other: Good insight and judgment, pleasant DS: Data Data Completed and Pending Labs on day of discharge: Labs from last 24 hours 08/21/25 08/20/25 04:28 09:17 WBC 8.8 RBC 4.05 L Hgb 12.4 Hct 37.0 MCV 91.4 MCH 30.6 MCHC 33.5 RDW 13.2 Plt Count 183 MPV 11.5 H Immature Gran % (Auto) 0.6 H Neut % (Auto) 68.4 Lymph % (Auto) 22.6 [place] % (Auto) 7.3 Eos % (Auto) 0.6 Baso % (Auto) 0.5 Lymph # (Auto) 1.99 [place] # (Auto) 0.6 Eos # (Auto) 0.1 Baso # (Auto) 0.0 Abs Immat Gran (auto) 0.05 H Absolute Neuts (auto) 6.0 Absolute Nucleated RBC 0.000 Nucleated RBC % 0.0 Sodium 137 Potassium 3.4 Chloride 108 H Carbon Dioxide 22 Anion Gap 7 BUN 9 D Creatinine 0.88 Estim Creat Clear Calc 84 Estimated GFR > 60 Glucose 84 Calcium 8.2 L Magnesium 1.9 Total Bilirubin 0.5 AST 21 ALT 18 Alkaline Phosphatase 50 Total Protein 6.4 Albumin 3.7 Free T4 1.22 Free T3 pg/mL 3.47 Discharge Plan Discharge Attending physician on discharge: Rupert Curiel Consulting providers: Munira Julio Discharging Clinician: Petra Simpson Patient Disposition: Home Activity: may shower Diet: heart healthy Discharge Instructions: please f/u with cardiology. complete the whole course of antibitoics. Patient Instructions: Antibiotic Form Patient Language: Yoruba Stand Alone Forms: General Discharge Information Follow-up/Referrals: Shadi Sarah APRN [Primary Care Provider, Internal Medicine] - 2 Weeks Munira Julio MD [Physician, Cardiology] - 2 Weeks Discharge Medications: New amoxicillin-pot clavulanate 875-125 mg tablet 1 tablet PO Q12H Qty: 6 0RF Continued betamethasone valerate 0.1 % cream 1 applic topical BID PRN (Reason: rash) Qty: 45 1RF Patient Comments: rare use cyclobenzaprine 10 mg tablet 10 mg PO QHS PRN (Reason: muscle spasm) Qty: 30 0RF Patient Comments: rare use, maybe once a year sertraline 50 mg tablet 75 mg PO DAILY Qty: 135 1RF methylphenidate HCl [Concerta] 36 mg tablet extended release 24hr 36 mg PO QAM Qty: 30 0RF ondansetron 4 mg tablet,disintegrating 4 mg PO Q6H PRN (Reason: nausea and vomiting) Qty: 30 0RF Other Ambulatory Orders: [place] cardiac event monitor (Routine) Timeframe: 1 Month [place] [facility] [place] Ordered By: Peggy Avila Date of admission: 08/20/25 13:03 Primary Care Provider: Shadi Sarah Admitting Provider: Rupert Curiel Attending physician on admission: Rupert Curiel Condition: Stable Quality VTE Prophylaxis VTE prophylaxis: mechanical ordered Hospitalist MIPS Heart Failure (Exclusion) Patient has history of Heart Transplant or Left Ventricular Assistive Device?: No IF YES, STOP HERE Heart Failure (Qualifier) Patient has current or prior documentation of LVEF less than or equal to 40%, or mod/servere depressed LVSF?: No IF NO, STOP HERE
== END 2025-08-21 15:43 | disposition home or self-care (01) ==
LOC: ANHED 13:10 → ANH3MEDSUR 13:45 → ANH2MED 14:30
PROVIDERS: Nurse Practitioner Family; Student in an Organized Health Care Education/Training Program; Admitting Provider General Practice; Emergency Provider Nurse Practitioner Family; PCP Nurse Practitioner; Visit Provider General Practice
DX: R00.1 Bradycardia, unspecified (principal); N30.01 Acute cystitis with hematuria; E87.6 Hypokalemia; R73.9 Hyperglycemia, unspecified; K44.9 Diaphragmatic hernia without obstruction or gangrene; K42.9 Umbilical hernia without obstruction or gangrene; Z20.822 Contact with and (suspected) exposure to COVID-19; E66.9 Obesity, unspecified; Z68.31 Body mass index [BMI] 31.0-31.9, adult; F41.8 Other specified anxiety disorders; F90.9 Attention-deficit hyperactivity disorder, unspecified type; F12.90 Cannabis use, unspecified, uncomplicated; Z79.52 Long term (current) use of systemic steroids; Z79.899 Other long term (current) drug therapy; Z87.442 Personal history of urinary calculi; Z80.42 Family history of malignant neoplasm of prostate; Z80.3 Family history of malignant neoplasm of breast
CPT/HCPCS: 36415; 71045; 74177; 80053; 81001; 81025; 82948; 83036; 83605; 83690; 83735; 84439; 84443; 84481; 84484; 85025; 87637; 93005; 93306; 96361; 96365; 96372; 96375; 99285; A9270; G0378; J0500; J0696; J1630; J1885; J2405; J2765; J3480; J7030; J7040; Q9967